=== PATIENT | female | born 1940 | race Caucasian/White ===

== ENCOUNTER 2023-07-18 07:39 | Day surgery (SDC) | payer MEDICARE, BC ==
[~2023-07-18 07:39] MED LIST: ACETYLCHOLINE CHLORIDE 1% OPHT 1 EA KIT ONE; BALANCED SALT IRRIG SOLN COMB1 500 ML ONE; BALANCED SALT IRRIG SOLN COMB1 500 ML, EPINEPHRINE-PF 1:1000 1 MG IO ONE; BALANCED SALT IRRIG SOLN COMB2 15 ML IRRIG.SOLN ONE; EPINEPHRINE-PF 1:1000 1 MG/ML AMPUL/VIAL ONE; HYALURONATE SODIUM 8.5 MG/0.85 ML ONE; LIDOCAINE 1%-EPI 1:100,000 20 ML VIAL ONE; LIDOCAINE HCL 1% 20 ML VIAL ONE; NEO/POLYMYX B/DEXAME OPHT OINT 3.5 GM TUBE ONE; PHENYLEPHRINE 10% OPHT DROP 5 ML BOTTLE ONE; TIMOLOL MALEATE 0.5% OPHT DROP 5 ML BOTTLE ONE
[2023-07-18] MEDS ORDERED: CIPROFLOXACIN 0.3% OPHT DROP 2.5 ML BOTTLE ONE (08:06)
[2023-07-18] MEDS ORDERED: KETOROLAC 0.5% OPHT DROP 3 ML BOTTLE ONE (08:06)
[2023-07-18] MEDS ORDERED: CYCLOPENTOLATE 1% OPHT DROP 2 ML BOTTLE ONE (08:06)
[2023-07-18] MEDS ORDERED: TETRACAINE HCL 0.5% OPHT DROP 2 ML BOTTLE ONE (08:07)
[2023-07-18] MEDS ORDERED: PHENYLEPHRINE 2.5% OPHT DROP 2 ML BOTTLE ONE (08:07)
[2023-07-18 08:46] LABS: BASOPHILS # (AUTO) 0.1 K/UL (0.0-0.2); BASOPHILS % (AUTO) 2.4 % (0.0-2.0); EOSINOPHILS # (AUTO) 0.2 K/uL (0.0-0.7); HEMATOCRIT 42.9 % (31.2-41.9); HEMOGLOBIN 14.2 g/dL (10.9-14.3); LYMPHOCYTES # (AUTO) 2.1 K/uL (0.8-4.8); LYMPHOCYTES % (AUTO) 35.5 % (20.5-51.5); MEAN CORPUSCULAR HEMOGLOBIN 31.7 uug (24.7-32.8); MEAN CORPUSCULAR HGB CONC 33 g/dL (32.3-35.6); MEAN CORPUSCULAR VOLUME 95.4 fL (75.5-95.3); MONOCYTES # (AUTO) 0.5 K/uL (0.1-1.30); MONOCYTES % (AUTO) 7.7 % (0.0-11.0); NEUTROPHILS # (AUTO) 3.1 K/uL (1.8-8.9); NEUTROPHILS % (AUTO) 51.4 % (38.5-71.5); PLATELET COUNT (AUTO) 208 K/uL (179-408); RED BLOOD CELL COUNT(AUTO) 4.49 MIL/uL (3.63-4.92); RED CELL DISTRIBUTION WIDTH 13.2 % (12.3-17.7); WHITE BLOOD COUNT (AUTO) 5.9 K/uL (3.8-11.8)
[2023-07-18 08:48] LABS: *BILIRUBIN,URIN NEGATIVE (NEGATIVE); *BLOOD, URINE 2+ (NEGATIVE); *CLARITY,URINE CLEAR (CLEAR); *COLOR,URINE YELLOW (YELLOW); *KETONES,URINE NEGATIVE (NEGATIVE); *PROTEIN,URINE NEGATIVE (NEGATIVE); *UROBILINOGEN,URINE 0.2 E.U./dl (NORMAL); LEUKOCYTE ESTERASE ,URINE NEGATIVE (NEGATIVE); NITRITE, URINE NEGATIVE (NEGATIVE); UGLUCOSE NEGATIVE (NEGATIVE)
[2023-07-18 09:02] LABS: DIFFERENTIAL COMMENT 1
[2023-07-18 09:07] LABS: CALCIUM 9.2 mg/dL (8.5-10.1); CREATININE 0.7 mg/dL (0.6-1.3); POTASSIUM 4.3 mmol/L (3.5-5.1)
[2023-07-18] MEDS ORDERED: MIDAZOLAM HCL 2 MG/2 ML VIAL ONE (09:49)
[2023-07-18] MEDS ORDERED: FENTANYL CITRATE 100 MCG/2 ML AMPUL ONE (09:49)
[2023-07-18 10:54] LABS: BACTERIA,URINE FEW /HPF (NONE SEEN)
[2023-07-18 10:55] LABS: SQUAMOUS EPITHELIAL CELL,UR FEW /HPF (NONE SEEN); WBC,URINE 0-3 /HPF (0-3)
[2023-07-18 12:00] VITALS: TEMP 98
== END 2023-07-18 12:20 | disposition home or self-care (01) ==
LOC: DS 07:39
PROVIDERS: ATTEND Dermatology MOHS-Micrographic Surgery
DX: H25.89 Other age-related cataract (principal); J94.2 Hemothorax; I10 Essential (primary) hypertension; M19.90 Unspecified osteoarthritis, unspecified site; J44.9 Chronic obstructive pulmonary disease, unspecified; Z79.899 Other long term (current) drug therapy; Z79.01 Long term (current) use of anticoagulants; Z98.890 Other specified postprocedural states
CPT/HCPCS: 36415; 71045; 85025; 85730; 93005; A4663; J0171; J2250; J3010; J3490; J7040; J7321; V2632

== ENCOUNTER 2023-08-01 07:10 | Day surgery (SDC) | payer MEDICARE, BC ==
[~2023-08-01 07:10] MED LIST changes: -ACETYLCHOLINE CHLORIDE 1% OPHT 1 EA KIT ONE; -BALANCED SALT IRRIG SOLN COMB1 500 ML ONE; -BALANCED SALT IRRIG SOLN COMB2 15 ML IRRIG.SOLN ONE; -EPINEPHRINE-PF 1:1000 1 MG/ML AMPUL/VIAL ONE; -HYALURONATE SODIUM 8.5 MG/0.85 ML ONE; -LIDOCAINE 1%-EPI 1:100,000 20 ML VIAL ONE; -LIDOCAINE HCL 1% 20 ML VIAL ONE; -NEO/POLYMYX B/DEXAME OPHT OINT 3.5 GM TUBE ONE; -PHENYLEPHRINE 10% OPHT DROP 5 ML BOTTLE ONE; -TIMOLOL MALEATE 0.5% OPHT DROP 5 ML BOTTLE ONE
[2023-08-01] MEDS ORDERED: CYCLOPENTOLATE 1% OPHT DROP 2 ML BOTTLE ONE (07:13)
[2023-08-01] MEDS ORDERED: KETOROLAC 0.5% OPHT DROP 3 ML BOTTLE ONE (07:13)
[2023-08-01] MEDS ORDERED: CIPROFLOXACIN 0.3% OPHT DROP 2.5 ML BOTTLE ONE (07:13)
[2023-08-01] MEDS ORDERED: TETRACAINE HCL 0.5% OPHT DROP 2 ML BOTTLE ONE ×2 (07:13→07:22)
[2023-08-01] MEDS ORDERED: PHENYLEPHRINE 2.5% OPHT DROP 2 ML BOTTLE ONE (07:13)
[2023-08-01] MEDS ORDERED: BALANCED SALT IRRIG SOLN COMB2 15 ML IRRIG.SOLN ONE (07:22)
[2023-08-01] MEDS ORDERED: NEO/POLYMYX B/DEXAME OPHT OINT 3.5 GM TUBE ONE (07:22)
[2023-08-01] MEDS ORDERED: ACETYLCHOLINE CHLORIDE 1% OPHT 1 EA KIT ONE (07:23)
[2023-08-01] MEDS ORDERED: TIMOLOL MALEATE 0.5% OPHT DROP 5 ML BOTTLE ONE (07:23)
[2023-08-01] MEDS ORDERED: LIDOCAINE HCL 1% 20 ML VIAL ONE (07:23)
[2023-08-01] MEDS ORDERED: LIDOCAINE 1%-EPI 1:100,000 20 ML VIAL ONE (07:23)
[2023-08-01] MEDS ORDERED: HYALURONATE SODIUM 8.5 MG/0.85 ML ONE (07:24)
[2023-08-01 07:25] VITALS: TEMP 97.4
[2023-08-01] MEDS ORDERED: EPINEPHRINE-PF 1:1000 1 MG/ML AMPUL/VIAL ONE (07:38)
== END 2023-08-01 08:15 | disposition home or self-care (01) ==
LOC: DS 07:10
PROVIDERS: ATTEND Dermatology MOHS-Micrographic Surgery
DX: H25.812 Combined forms of age-related cataract, left eye (principal); Z53.8 Procedure and treatment not carried out for other reasons; I10 Essential (primary) hypertension; M19.90 Unspecified osteoarthritis, unspecified site; F41.9 Anxiety disorder, unspecified; F32.9 Major depressive disorder, single episode, unspecified; J44.9 Chronic obstructive pulmonary disease, unspecified; Z98.890 Other specified postprocedural states
CPT/HCPCS: A4663; J0171; J3490; J7120; J7321

== ENCOUNTER 2023-09-05 06:46 | Day surgery (SDC) | payer MEDICARE, BC ==
[~2023-09-05 06:46] MED LIST changes: +ACETYLCHOLINE CHLORIDE 1% OPHT 1 EA KIT ONE; -BALANCED SALT IRRIG SOLN COMB1 500 ML, EPINEPHRINE-PF 1:1000 1 MG IO ONE; +BALANCED SALT IRRIG SOLN COMB2 15 ML IRRIG.SOLN ONE; +EPINEPHRINE-PF 1:1000 1 MG/ML AMPUL/VIAL ONE; +HYALURONATE SODIUM 8.5 MG/0.85 ML ONE; +LIDOCAINE HCL 1% 20 ML VIAL ONE; +NEO/POLYMYX B/DEXAME OPHT OINT 3.5 GM TUBE ONE; +TETRACAINE HCL 0.5% OPHT DROP 2 ML BOTTLE ONE; +TIMOLOL MALEATE 0.5% OPHT DROP 5 ML BOTTLE ONE
[2023-09-05] MEDS ORDERED: CYCLOPENTOLATE 1% OPHT DROP 2 ML BOTTLE ONE (06:48)
[2023-09-05] MEDS ORDERED: CIPROFLOXACIN 0.3% OPHT DROP 2.5 ML BOTTLE ONE (06:48)
[2023-09-05] MEDS ORDERED: TETRACAINE HCL 0.5% OPHT DROP 2 ML BOTTLE ONE (06:49)
[2023-09-05] MEDS ORDERED: KETOROLAC 0.5% OPHT DROP 3 ML BOTTLE ONE (06:49)
[2023-09-05] MEDS ORDERED: PHENYLEPHRINE 2.5% OPHT DROP 2 ML BOTTLE ONE (06:49)
[2023-09-05] MEDS ORDERED: BALANCED SALT IRRIG SOLN COMB1 500 ML, EPINEPHRINE-PF 1:1000 1 MG IO ONE ×2 (07:00)
[2023-09-05 07:19] LABS: BASOPHILS # (AUTO) 0.1 K/UL (0.0-0.2); BASOPHILS % (AUTO) 0.7 % (0.0-2.0); EOSINOPHILS # (AUTO) 0.2 K/uL (0.0-0.7); EOSINOPHILS % (AUTO) 2.5 % (0.0-7.0); HEMATOCRIT 43.4 % (31.2-41.9); HEMOGLOBIN 14.8 g/dL (10.9-14.3); LYMPHOCYTES # (AUTO) 3.5 K/uL (0.8-4.8); LYMPHOCYTES % (AUTO) 47.6 % (20.5-51.5); MEAN CORPUSCULAR HEMOGLOBIN 32.2 uug (24.7-32.8); MEAN CORPUSCULAR HGB CONC 34 g/dL (32.3-35.6); MEAN CORPUSCULAR VOLUME 94.5 fL (75.5-95.3); MONOCYTES # (AUTO) 0.6 K/uL (0.1-1.30); MONOCYTES % (AUTO) 7.8 % (0.0-11.0); NEUTROPHILS % (AUTO) 41.4 % (38.5-71.5); PLATELET COUNT (AUTO) 226 K/uL (179-408); RED BLOOD CELL COUNT(AUTO) 4.59 MIL/uL (3.63-4.92); RED CELL DISTRIBUTION WIDTH 12.5 % (12.3-17.7); WHITE BLOOD COUNT (AUTO) 7.3 K/uL (3.8-11.8)
[2023-09-05 07:28] LABS: DIFFERENTIAL COMMENT 1
[2023-09-05 07:32] LABS: CALCIUM 8.9 mg/dL (8.5-10.1); CARBON DIOXIDE 26 mmol/L (21-32); CHLORIDE 102 mmol/L (98-107); CREATININE 0.5 mg/dL (0.6-1.3); POTASSIUM 5.5 mmol/L (3.5-5.1); SODIUM SERUM 136 mmol/L (136-145); UREA NITROGEN, BLOOD 15 mg/dL (7-18)
[2023-09-05 07:52] LABS: GLUCOSE 99 mg/dL (74-106)
[2023-09-05] MEDS ORDERED: BUPIVACAINE PF 0.5% 30 ML VIAL ONE (07:55)
[2023-09-05] MEDS ORDERED: LIDOCAINE 2%-EPI 1:100,000 20 ML VIAL ONE (07:55)
[2023-09-05] MEDS ORDERED: FENTANYL CITRATE 100 MCG/2 ML AMPUL ONE (08:01)
[2023-09-05] MEDS ORDERED: MIDAZOLAM HCL 2 MG/2 ML VIAL ONE (08:01)
[2023-09-05 08:49] LABS: *BILIRUBIN,URIN NEGATIVE (NEGATIVE); *BLOOD, URINE 1+ (NEGATIVE); *CLARITY,URINE CLEAR (CLEAR); *COLOR,URINE YELLOW (YELLOW); *KETONES,URINE NEGATIVE (NEGATIVE); *PROTEIN,URINE NEGATIVE (NEGATIVE); *UROBILINOGEN,URINE 0.2 E.U./dl (NORMAL); LEUKOCYTE ESTERASE ,URINE TRACE (NEGATIVE); NITRITE, URINE NEGATIVE (NEGATIVE); PH,URINE 6.5 (5.0-8.0); UGLUCOSE NEGATIVE (NEGATIVE)
[2023-09-05 09:35] VITALS: TEMP 97
[2023-09-05 10:53] LABS: BACTERIA,URINE FEW /HPF (NONE SEEN); SQUAMOUS EPITHELIAL CELL,UR FEW /HPF (NONE SEEN); WBC,URINE 0-3 /HPF (0-3)
== END 2023-09-05 09:40 | disposition home or self-care (01) ==
LOC: DS 06:46
PROVIDERS: ATTEND Dermatology MOHS-Micrographic Surgery
DX: H25.89 Other age-related cataract (principal); I10 Essential (primary) hypertension; M19.90 Unspecified osteoarthritis, unspecified site; F41.9 Anxiety disorder, unspecified; F32.9 Major depressive disorder, single episode, unspecified; Z79.899 Other long term (current) drug therapy; Z98.890 Other specified postprocedural states
CPT/HCPCS: 36415; 66984; 80048; 81001; 85025; 85730; J0171; J2250; J3010; J3490; J7120; J7321; A4663; V2632

== ENCOUNTER 2024-07-28 19:27 | Emergency (ER) | payer MEDICARE, BC | END 2024-07-28 21:46 | disposition left against medical advice (07) | LOC: ER 19:34 | DX: M25.519 Pain in unspecified shoulder (principal); Z53.21 Procedure and treatment not carried out due to patient leaving prior to being seen by health care provider ==